=== PATIENT | male | born 1995 | race Caucasian/White ===

== ENCOUNTER 2021-03-21 09:18 | Emergency (ER) | payer OTHER ==
[~2021-03-21] VITALS: Ht 172.7 cm; Wt 62.6 kg
[2021-03-21 09:33] VITALS: BP 115/69
--- NOTE | 2021-03-21 09:39 | NUR ---
PT AMBULATED TO BED 12, STEADY GAIT.
--- NOTE | 2021-03-21 09:44 | NUR ---
26/M presents to ED with c/o laceration. 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 Small laceration noted to right index finger, bleeding controlled at this time. Patient states he cleaned his finger with peroxide prior to arrival, denies taking anything for pain. Patient able to move finger appropriately, states pain worsens with movement. Describes it as a 3/10 throbbing pain.
[2021-03-21] MEDS ORDERED: LIDOCAINE MPF 1% 10 MG/ML VIAL INJ ONE (10:05)
--- NOTE | 2021-03-21 11:11 | NUR ---
Patient discharged with v/s stable. Written and verbal after care instructions given and explained. Patient verbalized understanding. Ambulatory with steady gait. All questions addressed prior to discharge. Advised to follow up with PMD.
--- NOTE | 2021-03-21 11:11 | NUR ---
applied dressing and finger frog splint to right 2nd digit without any issues
== END 2021-03-21 11:11 | disposition home or self-care (01) ==
LOC: MED 09:18
DX: S61.210A Laceration without foreign body of right index finger without damage to nail, initial encounter (principal); W45.8XXA Other foreign body or object entering through skin, initial encounter; Y93.89 Activity, other specified; Y92.89 Other specified places as the place of occurrence of the external cause; Y99.0 Civilian activity done for income or pay
CPT/HCPCS: 12001; 90471; 90715; 99283; J2001

== ENCOUNTER 2021-03-23 12:34 | Emergency (ER) | payer OTHER ==
[~2021-03-23] VITALS: Ht 172.7 cm; Wt 62.1 kg
[2021-03-23 12:42] VITALS: BP 142/75
[2021-03-23 13:12] VITALS: BP 142/75
== END 2021-03-23 13:12 | disposition home or self-care (01) ==
LOC: MED 12:34
DX: S61.210D Laceration without foreign body of right index finger without damage to nail, subsequent encounter (principal); Z48.00 Encounter for change or removal of nonsurgical wound dressing; X58.XXXD Exposure to other specified factors, subsequent encounter
CPT/HCPCS: 99281

== ENCOUNTER 2021-03-28 19:39 | Emergency (ER) | payer OTHER ==
[~2021-03-28] VITALS: Ht 172.7 cm; Wt 61.7 kg
[2021-03-28 19:49] VITALS: BP 134/82
--- NOTE | 2021-03-28 19:50 | NUR ---
PATIENT AMBUALTED TO LOBBY WITH STEADY GAIT.
--- NOTE | 2021-03-28 21:03 | NUR ---
PATIENT LEFT WITHOUT BEING SEEN BY DR. MURRAY. NO FURTHER CARE PROVIDED FOR PATIENT.
== END 2021-03-28 21:03 | disposition left against medical advice (07) ==
LOC: MED 19:39
DX: S61.210D Laceration without foreign body of right index finger without damage to nail, subsequent encounter (principal); Z53.21 Procedure and treatment not carried out due to patient leaving prior to being seen by health care provider; X58.XXXD Exposure to other specified factors, subsequent encounter

== ENCOUNTER 2021-03-30 09:58 | Emergency (ER) | payer OTHER ==
[~2021-03-30] VITALS: Ht 172.7 cm; Wt 62.1 kg
[2021-03-30 10:00] VITALS: BP 124/71
[2021-03-30 10:52] VITALS: BP 124/71
--- NOTE | 2021-03-30 10:53 | NUR ---
Patient discharged with v/s stable. Written and verbal after care instructions ABOUT SUTURE REMOVAL given and explained. Patient verbalized understanding. Ambulatory with steady gait. All questions addressed prior to discharge. Advised to follow up with PMD.
== END 2021-03-30 10:53 | disposition home or self-care (01) ==
LOC: MED 09:58
DX: S61.210D Laceration without foreign body of right index finger without damage to nail, subsequent encounter (principal); X58.XXXD Exposure to other specified factors, subsequent encounter
CPT/HCPCS: 99281